=== PATIENT | female | born 1995 | race Caucasian/White ===

== ENCOUNTER 2017-09-21 17:44 | Emergency (ER) | payer OTHER ==
[~2017-09-21] VITALS: Ht 162.6 cm; Wt 73.7 kg
[~2017-09-21 17:44] MED LIST: BSP/5 PO; DOXY100C76 PO; ESCI1TAB10 PO; LAMO25TA PO
[2017-09-21 17:56] VITALS: TEMP 37.1; Ht 162.6 cm; Wt 73.7 kg
[2017-09-21] MEDS ORDERED: MONT1TAB3 PO (18:46)
[2017-09-21 18:47] LABS: BASO % 0.1 %; BASO ABS # 0.01 K/uL (0-0.2); HEMATOCRIT 43.5 % (37-47); IG# 0.03 K/uL (0.00-0.02); LYMPH % 19.2 %; LYMPH ABS # 1.93 K/uL (1.2-3.4); MEAN CELL VOLUME 93.3 fL (80-100); MEAN CORPUSCULAR HEMOGLOBIN 32.2 pg (25-34); MEAN CORPUSCULAR HGB CONC 34.5 g/dl (32-36); MEAN PLATELET VOLUME 9.3 fL (7.4-10.4); MONO % 5.1 %; MONO ABS # 0.51 K/uL (0.11-0.59); NEUT % 75.3 %; NEUT ABS # 7.57 K/uL (1.4-6.5); PLATELET COUNT 369 K/uL (130-400); RED CELL DISTRIBUTION WIDTH CV 12.2 % (11.5-14.5); RED CELL DISTRIBUTION WIDTH SD 41.1 fL (36.4-46.3); WHITE BLOOD COUNT 10.05 K/uL (4.8-10.8)
[2017-09-21] MEDS ORDERED: VALARIAN ROOT PO (18:49)
[2017-09-21] MEDS ORDERED: [UNRECOGNIZED DRUG - CODE] PO (18:49)
[2017-09-21 19:09] LABS: ALBUMIN 4.3 gm/dl (3.4-5.0); CALCIUM 9.4 mg/dl (8.5-10.1); CREATININE 0.82 mg/dl (0.60-1.20); POTASSIUM 3.6 mmol/L (3.5-5.1)
[2017-09-21 19:20] LABS: TOTAL PROTEIN 8.6 gm/dl (6.4-8.2)
[2017-09-21] MEDS ORDERED: LORAZEPAM 0.5 MG TAB SL STA (19:44)
--- NOTE | 2017-09-21 21:10 | EMERGENCY ROOM VISIT NOTE ---
History Report prepared by Jose Ramon: Janis Moreno Under the Supervision of: Shree JenkinsO. First contact with patient: 18:05 Chief Complaint: MENTAL HEALTH EVALUATION Stated Complaint: HEARTBREAK, SUICIDAL, ANXIETY, ANGER, PAIN EMOTION History of Present Illness The patient is a 22 year old female who presents to the Emergency Room for a mental health evaluation secondary to suicidal thoughts that began one day ago. The patient states that she was recently living in [place] with her fiance, noting she had lost medical insurance for a year preventing her from taking her PTSD and anxiety medication. She notes that last night her fiance broke up with her and she drove to [place] to stay with family. She has been taking of killing herself does not have a clear plan. She notes that she would do it anyway that she could when the moment presented itself. She notes she had several suicide attempts, noting it was through medication overdose. The patient states she has been a patient at the [facility] and would like to be admitted again. Pt denies headache, change in vision, fevers, chest pain, shortness of breath, nausea, vomiting, diarrhea, pain with urination, and melena. Source of History: patient Onset: one day Position: other (global) Symptom Intensity: Quality: other (mental health evaluation) Review of Systems See HPI for pertinent positives & negatives. A total of 10 systems reviewed and were otherwise negative. Past Medical & Surgical Medical Problems: (1) Anxiety (2) Asthma (3) Chronic headaches Family History Cancer Diabetes mellitus Hypertension Seizures Social History Smoking Status: Former Smoker Alcohol Use: none Drug Use: none Marital Status: single Housing Status: lives with family Occupation Status: student Current/Historical Medications Scheduled Glycine ([id number]), 100 MG PO TID Montelukast Sodium (Singulair), 10 MG PO QAM [Valarian Root], 5 DROPS PO DAILY Allergies Coded Allergies: Amoxicillin (Verified Allergy, Intermediate, HIVES, 09/21/17) Physical Exam Vital Signs Date Time Temp Pulse Resp B/P (MAP) Pulse Ox O2 Delivery O2 Flow Rate FiO2 09/21/17 17:56 37.1 73 18 126/86 97 Physical Exam GENERAL: Sitting up in bed, alert, well appearing, well nourished, no distress, non-toxic EYE EXAM: normal conjunctiva. OROPHARYNX: no exudate, no erythema, lips, buccal mucosa, and tongue normal and mucous membranes are moist NECK: supple, no nuchal rigidity, no adenopathy, non-tender LUNGS: Clear to auscultation. Normal chest wall mechanics HEART: no murmurs, S1 normal and S2 normal ABDOMEN: abdomen soft, non-tender, normo-active bowel sounds, no masses, no rebound or guarding. BACK: Back is symmetrical on inspection and there is no deformity, no midline tenderness, no CVA tenderness. SKIN: no rashes and no bruising UPPER EXTREMITIES: upper extremities are grossly normal. LOWER EXTREMITIES: No pitting edema. NEURO EXAM: Normal sensorium, cranial nerves II-XII grossly intact, normal speech, no gross weakness of arms, no gross weakness of legs. PSYCH: Admits to suicidal ideations without a clear plan. Medical Decision & Procedures Laboratory Results 09/21/17 18:29 Red Blood Count 4.66, Mean Corpuscular Volume 93.3, Mean Corpuscular Hemoglobin 32.2, Mean Corpuscular Hemoglobin Concent 34.5, Mean Platelet Volume 9.3, Neutrophils (%) (Auto) 75.3, Lymphocytes (%) (Auto) 19.2, Monocytes (%) (Auto) 5.1, Eosinophils (%) (Auto) 0.0, Basophils (%) (Auto) 0.1, Neutrophils # (Auto) 7.57, Lymphocytes # (Auto) 1.93, Monocytes # (Auto) 0.51, Eosinophils # (Auto) 0.00, Basophils # (Auto) 0.01 09/21/17 18:29 Test 09/21/17 18:18 09/21/17 18:29 Urine Color YELLOW Urine Appearance CLOUDY (CLEAR) Urine pH 5.0 (4.5-7.5) Urine Specific [place] 1.026 (1.000-1.030) Urine Protein NEG (NEG) Urine Glucose (UA) NEG (NEG) Urine Ketones 3+ (NEG) Urine Occult Blood TRACE (NEG) Urine Nitrite NEG (NEG) Urine Bilirubin NEG (NEG) Urine Urobilinogen NEG (NEG) Urine Leukocyte Esterase MODERATE (NEG) Urine WBC (Auto) >30 /hpf (0-5) Urine RBC (Auto) 0-4 /hpf (0-4) Urine Hyaline Casts (Auto) 10-30 /lpf (0-5) Urine Epithelial Cells (Auto) >30 /lpf (0-5) Urine Bacteria (Auto) 2+ (NEG) Urine Opiates Screen NEG (NEG) Urine Methadone, Qualitative NEG (NEG) Urine Barbiturates POS (NEG) Urine Phencyclidine (PCP) Level NEG (NEG) Ur Amphetamine/Methamphetamine NEG (NEG) MDMA (Ecstasy) Screen NEG (NEG) Urine Benzodiazepines Screen NEG (NEG) Urine Cocaine Metabolite NEG (NEG) Urine Marijuana (THC) NEG (NEG) White Blood Count 10.05 K/uL (4.8-10.8) Red Blood Count 4.66 M/uL (4.2-5.4) Hemoglobin 15.0 g/dL (12.0-16.0) Hematocrit 43.5 % (37-47) Mean Corpuscular Volume 93.3 fL (80-100) Mean Corpuscular Hemoglobin 32.2 pg (25-34) Mean Corpuscular Hemoglobin Concent 34.5 g/dl (32-36) Platelet Count 369 K/uL (130-400) Mean Platelet Volume 9.3 fL (7.4-10.4) Neutrophils (%) (Auto) 75.3 % Lymphocytes (%) (Auto) 19.2 % Monocytes (%) (Auto) 5.1 % Eosinophils (%) (Auto) 0.0 % Basophils (%) (Auto) 0.1 % Neutrophils # (Auto) 7.57 K/uL (1.4-6.5) Lymphocytes # (Auto) 1.93 K/uL (1.2-3.4) Monocytes # (Auto) 0.51 K/uL (0.11-0.59) Eosinophils # (Auto) 0.00 K/uL (0-0.5) Basophils # (Auto) 0.01 K/uL (0-0.2) RDW Standard Deviation 41.1 fL (36.4-46.3) RDW Coefficient of Variation 12.2 % (11.5-14.5) Immature Granulocyte % (Auto) 0.3 % Immature Granulocyte # (Auto) 0.03 K/uL (0.00-0.02) Anion Gap 9.0 mmol/L (3-11) Est Creatinine Clear Calc Drug Dose 106.8 ml/min Estimated GFR () 118.6 Estimated GFR (Non- 102.3 BUN/Creatinine Ratio 16.0 (10-20) Calcium Level 9.4 mg/dl (8.5-10.1) Total Bilirubin 1.1 mg/dl (0.2-1) Direct Bilirubin 0.2 mg/dl (0-0.2) Aspartate Amino Transf (AST/SGOT) 19 U/L (15-37) Alanine Aminotransferase (ALT/SGPT) 32 U/L (12-78) Alkaline Phosphatase 78 U/L (45-117) Total Protein 8.6 gm/dl (6.4-8.2) Albumin 4.3 gm/dl (3.4-5.0) Thyroid Stimulating Hormone (TSH) 1.070 uIu/ml (0.300-4.500) Ethyl Alcohol mg/dL < 3.0 mg/dl (0-3) Laboratory results per my review. Medications Administered Medications (Trade) Dose Ordered Sig/Tate Route Start Time Stop Time Status Last Admin Dose Admin Lorazepam (Ativan Tab) 0.5 mg NOW STAT SL 09/21/17 19:44 09/21/17 19:45 DC 09/21/17 19:50 0.5 MG ED Course ED COURSE: Vital signs were reviewed and showed normal vitals. The patients medical record was reviewed The above diagnostic studies were performed and reviewed. ED treatments and interventions as stated above. 1804: The patient was evaluated in room A6. A complete history and physical examination was performed. 1943: Ordered Lorazepam 0.5mg. 2011: Upon reevaluation, the patient is resting comfortably.I discussed my findings with the patient and she understands and agrees with the treatment plan. Based on the patients age, coexisting illnesses, exam and lab findings the decision to treat as an inpatient was made. 2032: The patient was denied at the [facility], due to lack on health insurance. Currently bed searching. 2008: Patient is resting comfortably and was signed out to Dr. bush awaiting placement on a 201 for suicidal ideations. Medical Decision Differential diagnosis: Etiologies such as mood disorder, infection, hypoglycemia, electrolyte abnormalities, cardiac sources, intracerebral event, toxicologic, neurologic, as well as others were entertained. The patient is a 22 year old female who presents to the ED for a mental health evaluation. Patient notes that she broke up with her fianc and has been having thoughts of suicide. She has no clear plan at this time but notes that she wouldn't use anything at her disposal to complete this. She is willing to come on a 201. She has no other physical complaints. She has attempted multiple times before in the past with overdose. CBC all BMP, LFTs, bilirubin and TSH was unremarkable. Alcohol is negative. Tox for barbiturates was positive. She was given Ativan in the ER to help her relax. UA was contaminated with multiple epithelial cells. Will not treat as she is no symptoms at this time. Currently we are performing a bedside. Patient was signed out to Dr. bush awaiting placement on a 201 or suicidal ideations. Medication Reconcilliation Current Medication List: was personally reviewed by me Blood Pressure Screening Patient's blood pressure: Normal blood pressure Impression Primary Impression: Suicidal ideation Additional Impression: Mood disorder Scribe Attestation The scribe's documentation has been prepared under my direction and personally reviewed by me in its entirety. I confirm that the note above accurately reflects all work, treatment, procedures, and medical decision making performed by me. Departure Information Referrals No Doctor, Assigned (PCP) Forms HOME CARE DOCUMENTATION FORM, IMPORTANT VISIT INFORMATION Patient Instructions My [facility] Problem Qualifiers
--- NOTE | 2017-09-22 00:58 | EMERGENCY ROOM VISIT NOTE ---
ED Visit Note First contact with patient: 00:57 s/o from Dr. Grimes. Depression with SI. Planned psych admission. Voluntary. 201 signed. Accepted to [facility].
[2017-09-22 01:19] VITALS: BP 125/71; PULSE 72; O2SAT 99
== END 2017-09-22 01:20 ==
LOC: C.EDB 17:46 → C.EDA 09-22 01:20
DX: R45.851 Suicidal ideations (principal); F39 Unspecified mood [affective] disorder; J45.909 Unspecified asthma, uncomplicated; Z87.891 Personal history of nicotine dependence; Z80.9 Family history of malignant neoplasm, unspecified; Z83.3 Family history of diabetes mellitus; Z82.49 Family history of ischemic heart disease and other diseases of the circulatory system; Z82.0 Family history of epilepsy and other diseases of the nervous system